=== PATIENT | male | born 1995 | race Caucasian/White ===

== ENCOUNTER 2016-08-20 03:20 | Emergency (ER) | payer SELFPAY ==
[~2016-08-20] VITALS: Ht 172.7 cm; Wt 56.0 kg
[2016-08-20 03:26] VITALS: Ht 172.7 cm; Wt 56.0 kg
== END 2016-08-20 06:11 | disposition left against medical advice (07) ==
LOC: FTE 03:20
DX: Z53.21 Procedure and treatment not carried out due to patient leaving prior to being seen by health care provider (principal)